=== PATIENT | male | born 1990 | race Hispanic/Latino ===

== ENCOUNTER 2018-06-17 22:50 | Emergency (ER) | payer BC ==
[2018-06-17 22:56] VITALS: BP 127/81; PULSE 99; RESP 16; O2SAT 96
[2018-06-17 23:51] VITALS: TEMP 99.7
--- NOTE | 2018-06-18 | C.PDOC ---
History Of Present Illness 28 year old male presents with cough, body aches, malaise and fever for the past 2 days. Denies nausea, vomiting, or abdominal pain. HPI: Influenza Time Seen by Provider: 06/17/18 23:02 Chief Complaint: Flu-like Symptoms History Per: Patient Exam Limitations: no limitations Have you had recent travel within the past 21 days to any of the following countries: [place], [place], [place] or [place]?: No Onset/Duration Of Symptoms: Days (2) Symptoms include: fever, bodyaches, cough. denies: vomiting, diarrhea Sick Contacts (Context): None Hx Influenza Vaccination: No Past Medical History Reviewed: Historical Data, Nursing Documentation, Vital Signs Vital Signs: Last Vital Signs Temp 99.7 F H 06/17/18 23:51 Pulse 99 H 06/17/18 22:52 Resp 16 06/17/18 22:52 BP 127/81 06/17/18 22:52 Pulse Ox 96 06/17/18 22:52 Family History: States: Unknown Family Hx - Social History Hx Alcohol Use: Yes Hx Substance Use: No - Immunization History Hx Influenza Vaccination: No Review Of Systems Constitutional: Positive for: Fever ENT: Negative for: Throat Pain Respiratory: Positive for: Cough Gastrointestinal: Negative for: Nausea, Vomiting, Abdominal Pain, Diarrhea Musculoskeletal: Positive for: Other (Body aches) Skin: Negative for: Rash Physical Exam - Physical Exam Appears: Non-toxic Skin: Normal Color, Warm, Dry Head: Atraumatic, Normacephalic Eye(s): bilateral: Normal Inspection Ear(s): Bilateral: Normal Nose: Normal Oral Mucosa: Moist Throat: Normal, No Erythema, No Exudate Neck: Normal, Supple Chest: Symmetrical, No Tenderness Cardiovascular: Rhythm Regular Respiratory: Normal Breath Sounds, No Rales, No Rhonchi, No Wheezing Neurological/Psych: Oriented x3, Normal Speech - ECG O2 Sat by Pulse Oximetry: 96 (Room air) Pulse Ox Interpretation: Normal - Progress ED Course And Treament: Patient flu a+, tamiflu and tylenol administered. Patient resting comfortably in no acute distress, vitals are stable, temperature has improved, will discharge home with Rx and instructions to follow up with PMD. Disposition Counseled Patient/Family Regarding: Diagnosis, Need For Followup, Rx Given - Disposition Referrals: [facility] [Outside] Disposition: HOME/ ROUTINE Disposition Time: 23:57 Condition: STABLE Additional Instructions: Take all medications as instructed Bed rest Increase PO fluids Tylenol and advil for pain and fever Return to ER if worse Prescriptions: Benzonatate [Tessalon Perles] 200 mg PO TID #14 sgl Oseltamivir Cap [Tamiflu] 75 mg PO BID #10 cap Instructions: Flu, Adult (DC) Forms: [employer] (Ch[place]an), Work Excuse - Clinical Impression Clinical Impression: Influenza A - 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 - Scribe Statement The provider has reviewed the documentation as recorded by the Scribyessica Mederos All medical record entries made by the Veraibyessica were at my direction and personally dictated by me. I have reviewed the chart and agree that the record accurately reflects my personal performance of the history, physical exam, medical decision making, and the department course for this patient. I have also personally directed, reviewed, and agree with the discharge instructions and disposition.
== END 2018-06-18 00:08 | disposition home or self-care (01) ==
LOC: C.ER 22:50
DX: J11.1 Influenza due to unidentified influenza virus with other respiratory manifestations (principal)